=== PATIENT | female | born 1960 | race Caucasian/White ===

== ENCOUNTER 2022-07-07 09:56 | Outpatient (CLI) | payer BC, SELFPAY ==
--- NOTE | 2022-07-07 11:38 | W.ANESCHARGE ---
Anesthesia Charges Start Date/Time Anesthesia Start Date: 07/07/22 Anesthesia Start Time: 11:00 Stop Date/Time Anesthesia Stop Date: 07/07/22 Anesthesia Stop Time: 11:33 Summary Emergency: No
== END 2022-07-07 09:57 | disposition home or self-care (01) ==
LOC: OP CLINIC 09:58
PROVIDERS: PCP Family Medicine; Visit Provider Internal Medicine Gastroenterology
DX: Z12.11 Encounter for screening for malignant neoplasm of colon (principal); K63.5 Polyp of colon; Q43.8 Other specified congenital malformations of intestine; Z86.010 Personal history of colon polyps
CPT/HCPCS: 00811; 45385; 88305; J2704